=== PATIENT | male | born 1960 | race Caucasian/White ===

== ENCOUNTER → 2019-01-20 | Outpatient (CLI) | payer OTHER ==
[~2019-01-20] MED LIST: ACCUPRIL40 MG PO; ASPIRIN325 PO; ATORVASTATIN CA40 MG PO; COREG25 MG PO; COUMADIN 5 MG TA5 M1 PO; DOXYCYCLINE 10100 MG PO; ENOXAPARIN120 MG/0.1 SUBQ; ENOXAPARIN80 MG/0.1 SUBQ; LISINOPRIL20 MG PO; METOPROLOL TART25 MG PO; NICOTINE TRANSD21 M1 TRANSDERM; SIMVASTATIN40 MG PO; SYNTHROID75 MCG PO
--- NOTE | 2019-01-20 11:12 | 2DMMODE ---
[facility] [address] [place] [address] 2 D/M-MODE ECHOCARDIOGRAM Name: FEDERICAESPERANZA KAUFFMAN Room #: REG [facility]#: [id number] Admission: 01/20/19 Attend Phys: Gee Rebollar MD Discharge: Date of : 56 Date of Service: 01/20/19 1112 Report #: [id number] THIS REPORT FOR: //name// APPROVED REPORT Study performed: 01/20/2019 10:02:16 EXAM: Comprehensive 2D, Doppler, and color-flow Echocardiogram Patient Location: Out-Patient Room #: Echo Lab 1 Status: routine BSA: 2.57 HR: 74 bpm BP: 134/86 mmHg Rhythm: Atrial Fibrillation Other Information Study Quality: Adequate Indications Atrial Fibrillation 2D Dimensions RVDd: 52.30 mm IVSd: 16.71 (7-11mm) LVOT Diam: 20.01 (18-24mm) LVDd: 39.13 mm PWd: 12.65 (7-11mm) Ascending Ao: 47.71 (22-36mm) LVDs: 28.76 (25-40mm) Aortic Root: 43.97 mm Volumes Left Atrial Volume (Systole) Single Plane 4CH: 88.05 mL Single Plane 2CH: 101.46 mL LA ESV Index: 42.00 mL/m2 Aortic Valve AoV Peak Christiano.: 1.28 m/s AO Peak Gr.: 8.57 mmHg LVOT Max P.20 mmHg LVOT Max V: 1.03 m/s RAMBO Vmax: 2.51 cm2 Mitral Valve MV Decel. Time: 154.94 ms MV E Max Christiano.: 1.01 m/s [facility] [address] [place] [address] 2 D/M-MODE ECHOCARDIOGRAM Name: ESPERANZA STALLWORTH Room #: REG [facility]#: [id number] Admission: 01/20/19 Attend Phys: Gee Rebollar MD Discharge: Date of : 56 Date of Service: 01/20/19 1112 Report #: [id number] Pulmonary Valve PV Peak Christiano.: 0.99 m/s PV Peak Gr.: 4.00 mmHg Tricuspid Valve TR Peak Christiano.: 1.91 m/s RAP Estimate: 5.00 mmHg TR Peak Gr.: 14.66 mmHg PA Pressure: 19.00 mmHg Left Ventricle The left ventricle is normal size. There is normal LV segmental wall motion. Mild to moderate concentric left ventricular hypertrophy. The left ventricular systolic function is normal. LVEF is 55-60%. This study is not technically sufficient to allow evaluation of the LV diastolic function due to atrial fibrillation. Right Ventricle Right ventricle is dilated. Atria Left atrium is dilated. Right atrium is dilated. Aortic Valve The aortic valve is normal in structure. Mild aortic regurgitation. There is no aortic valvular stenosis. Mitral Valve The mitral valve is normal in structure. Mild to moderate mitral regurgitation. No evidence of mitral valve stenosis. Tricuspid Valve The tricuspid valve is normal in structure. Mild tricuspid regurgitation. Estimated PAP is 19mmHg. Pulmonic Valve Pulmonic valve is not well visualized. Trace pulmonic regurgitation. Great Vessels Aortic root is dilated at 4.4 cm. The ascending aorta is dilated at 4.8cm. IVC is normal in size and collapses >50% with inspiration. Pericardium There is no pericardial effusion. <Conclusion> [facility] [place] [address] 2 D/M-MODE ECHOCARDIOGRAM Name: FEDERICAESPERANZA Room #: REG CL [facility]#: [id number] Admission: 01/20/19 Attend Phys: Gee Rebollar MD Discharge: Date of : 56 Date of Service: 01/20/191111 Report #: [id number] The left ventricle is normal size. Mild to moderate concentric left ventricular hypertrophy. The left ventricular systolic function is normal. Right ventricle is dilated. Left atrium is dilated. Right atrium is dilated. Mild aortic regurgitation. Mild to moderate mitral regurgitation. Mild tricuspid regurgitation. Estimated PAP is 19mmHg. The ascending aorta is dilated at 4.8cm. <ELECTRONICALLY SIGNED> By: Gee Rebollar MD 01/20/192 11 1112 Gee Rebollar MD /INF
== END ==
LOC: CV 09:46
DX: I08.3 Combined rheumatic disorders of mitral, aortic and tricuspid valves (principal); I48.91 Unspecified atrial fibrillation

== ENCOUNTER → 2019-01-27 | Outpatient (CLI) | payer OTHER ==
[~2019-01-27] VITALS: Ht 193 cm; Wt 129.3 kg
[~2019-01-27] MED LIST changes: +INDAPAMIDE2.5 MG PO; +XARELTO20 MG PO
[2019-01-27 07:02] VITALS: BP 134/90
[2019-01-27 07:14] LABS: HEMATOCRIT 46.3 % (42.0-52.0); HEMOGLOBIN 15.5 gm/dL (14.0-18.0); MCH 31.5 pg (26.0-34.0); MCHC 33.6 g/dL (28.0-37.0); MCV 93.8 fL (80.0-100.0); RBC 4.93 mil/uL (4.50-6.00); RDW 12.7 % (10.5-14.5); WBC 9.4 thou/uL (4.0-11.0)
[2019-01-27 07:23] LABS: POTASSIUM 3.5 mmol/L (3.5-5.1)
[2019-01-27 07:28] LABS: PROTIME 10.7 Seconds (9.3-11.4)
--- NOTE | 2019-01-27 09:03 | EKG ---
[address] [address] ELECTROCARDIOGRAM REPORT Name: ESPERANZA STALLWORTH [id number] ������������������ Admission: 01/27/19 ������������������ Attend Phys: Gee Rebollar MD Discharge: ������������������ Date of : 56 Report #: [id number] ����������������������������������������������������������������� [id number] THIS REPORT FOR: //name// [facility] Test Date: 2019-01-27 Test Time: 07:20:21 Pat Name: ESPERANZA STALLWORTH Department: Room: Gender: Claims Director: Karely ALONSO : 1960 Requested By: Gee Rebollar Order Number: [id number] MD: Francis Schneider Measurements Intervals [place] Rate: 77 P: [place]: QRS: 56 QRSD: 98 T: 40 QT: 409 QTc: 463 Interpretive Statements Atrial fibrillation Otherwise no significant abnormality Compared to ECG 09/07/2017 22:59:34 Sinus rhythm no longer present Electronically Signed On 01-27-2019 9:02:56 CDT by Francis Schneider [email or web address] ��������������������������������������������� <ELECTRONICALLY SIGNED> ���������������������������������������� By: Francis Schneider MD, [facility] ��������������������������������������������� 01/27/19901 9 9 Francis Schneider MD, FACC /EPI
--- NOTE | 2019-01-27 11:10 | CATHLAB ---
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 A PINNACLE 4FR Sheath #[id number] sheath was inserted into the RFA^. Coronary angiography was performed using coronary diagnostic catheters. The right coronary system was accessed and visualized with a JR4 catheter. The left coronary system was accessed and visualized with a JL4 catheter. The left ventricle was accessed and visualized with a pigtail catheter. Hemostasis was obtained with manual pressure following sheath removal without any complications. The patient tolerated the procedure well and there were no complications associated with the procedure. There was no hematoma. Intraoperative Conscious Sedation [facility] [address] [place] [address] INVASIVE PROCEDURE REPORT Name: ESPERANZA STALLWORTH Room #: REG [facility]#: [id number] ������������� Admission: 01/27/19 ������������� Attend Phys: Gee Rebollar MD Discharge: ��� ������������� ��� Date of : 56 Date of Service: 01/27/19 1109 �� Report #: [id number] �������� ��������������������������������������������[id number] Sedation start time: 8:27 Case end Time: 9:04 Fentanyl 75 mcg Versed 1.5 mg .5.5 Fluoro Time: 11.00 minutes Dose: DAP 59306.00 cGycm2 2471 mGy Contrast Type and Amount: Visipaque 65 ml Coronary Angiography The patient's coronary anatomy is right dominant. Diagnostic Cath Left Main This is a patent vessel, with no flow-limiting lesions. LAD There is severe restenosis in the proximal/mid LAD stents. There is a patent POTTER graft with an end to side anastomosis to the mid LAD. After the anastomosis, there is both retrograde and antegrade flow in the [place] LAD. Diagonal 1 This is a small to moderate size caliber vessel, with mild disease at the ostium. Diagonal 2 This is a small to moderate size caliber vessel, with mild disease at the ostium. Circumflex This is a patent vessel, with no flow-limiting lesions. OM1 There is a total occlusion at the ostium. There is a patent SVG with an end to side anastomosis to OM1. OM2 This is a small to moderate size caliber vessel, with mild disease at the ostium. Right Coronary There is a total occlusion in the mid RCA segment. R PDA There is a patent SVG with an end to side anastomosis to the PDA. After the anastomosis, there is also retrograde filling of a RPL branch. Left Ventriculography Left Ventriculography was not performed. The LVEDP was measured and there is no gradient across the outflow tract. Hemodynamics The aortic pressure is 116/84 mmHg with a mean of 98 mmHg. The left ventricular pressure is 108/8 mmHg with a mean of mmHg. The left ventricular end diastolic pressure is 14 mmHg. Conclusion 1. There is a patent POTTER graft to the mid LAD. [facility] [address] [place] [address] INVASIVE PROCEDURE REPORT Name: ESPERANZA STALLWORTH [facility] #: [facility] [id number] ������������� Admission: 01/27/19 ������������� Attend Phys: Gee Rebollar MD Discharge: ��� ������������� ��� Date of : 56 Date of Service: 01/27/19 1109 �� Report #: [id number] �������� ��������������������������������������������[id number] 2. There is a patent SVG to OM1. 3. There is a patent SVG to the PDA. 4. Recommend aggressive risk factor management. ��������������������������������������������� <ELECTRONICALLY SIGNED> ���������������������������������������� By: Gee Rebollar MD ��������������������������������������������� 01/27/191108 08 08 Gee Rebollar MD /INF
== END | disposition home or self-care (01) ==
LOC: CATH 06:32
PROVIDERS: Internal Medicine Cardiovascular Disease
DX: I25.110 Atherosclerotic heart disease of native coronary artery with unstable angina pectoris (principal); T82.855A Stenosis of coronary artery stent, initial encounter; I48.91 Unspecified atrial fibrillation; I10 Essential (primary) hypertension; I25.2 Old myocardial infarction; E78.5 Hyperlipidemia, unspecified; E78.00 Pure hypercholesterolemia, unspecified; Z79.01 Long term (current) use of anticoagulants; Z79.899 Other long term (current) drug therapy; Z95.1 Presence of aortocoronary bypass graft; Z86.711 Personal history of pulmonary embolism; Z87.01 Personal history of pneumonia (recurrent); Z88.0 Allergy status to penicillin; Z88.8 Allergy status to other drugs, medicaments and biological substances; Z79.82 Long term (current) use of aspirin

== ENCOUNTER → 2019-02-02 | Outpatient (CLI) | payer OTHER ==
[~2019-02-02] VITALS: Ht 193 cm; Wt 129.3 kg
[~2019-02-02] MED LIST changes: +MULTAQ400 MG PO; +PACERONE 200 M200 M1 PO
[2019-02-02 07:05] VITALS: BP 110/72
--- NOTE | 2019-02-02 08:55 | TEE ---
[facility] [address] [place] [address] TRANSESOPHAGEAL ECHOCARDIOGRAM Name: ESPERANZA STALLWORTH Room #: REG CL Deonna#: [id number] Admission: 02/02/19 Attend Phys: Francis Schneider, Discharge: Date of : 56 Report #: [id number] THIS REPORT FOR: //name// APPROVED REPORT Study performed: 02/02/2019 08:01:44 EXAM: Transesophageal Echocardiogram with Doppler and cardioversion Patient Location: Out-Patient Room #: 9 Status: routine BSA: 2.58 HR: 61 bpm BP: 114/60 mmHg Rhythm: Atrial Fibrillation Other Information Study Quality: Excellent Indications Atrial Fibrillation Echo Enhancing Agent Indication: Rule out Shunt Agent(s) / Amount(s) Used: Agitated Saline 7 cc Procedure After obtaining informed consent, patient underwent transesophageal echo in the [facility]. Type of Sedation : Conscious Sedation Sedation was achieved intravenously with: Versed (6 mg) Fentanyl (100 mcg) Transesophageal probe was inserted and advanced into esophagus without difficulty by Francis Schneider MD. Echo enhancement indication: R/O Septal defect. Echo enhancement agent administered: Agitated Saline The DANIELITO was performed without complications. Synchronized Cardioversion acheived with 100 Joules after 1 attempt(s). Rhythm following Synchronized Cardioversion: Normal Sinus Rhythm Throughout the procedure, the blood pressure, pulse oximetry, cardiac rhythm, and rate were monitored. The patient tolerated the procedure without adverse effects. Recovery from conscious sedation was uneventful and vital signs were [facility] [address] [place] [address] TRANSESOPHAGEAL ECHOCARDIOGRAM Name: ESPERANZA STALLWORTH Room #: [facility] [id number] Admission: 02/02/19 Attend Phys: Francis Schneider, Discharge: Date of : 56 Report #: [id number] stable. Left Ventricle The left ventricle is normal size. There is normal LV segmental wall motion. Mild to moderate concentric left ventricular hypertrophy. The left ventricular systolic function is normal. The left ventricular ejection fraction is within the normal range. LVEF is 55-60%. Right Ventricle The right ventricle is normal size. The right ventricular systolic function is normal. Atria Left atrium is dilated. No thrombus is visualized in the left atrium or appendage. No shunting by contrast bubble injection Right atrium is dilated. Aortic Valve The aortic valve is trileaflet, minimally sclerotic Mild aortic regurgitation. There is no aortic valvular stenosis. Mitral Valve The mitral valve is normal in structure. Mild mitral regurgitation. No evidence of mitral valve stenosis. Tricuspid Valve The tricuspid valve is normal in structure. Mild tricuspid regurgitation. Pulmonic Valve The pulmonary valve is normal in structure. There is no pulmonic valvular regurgitation. Great Vessels Aortic root is dilated. The ascending aorta is mildly dilated (4.3 cm). IVC is normal in size and collapses >50% with inspiration. Pericardium There is no pericardial effusion. <Conclusion> The left ventricular systolic function is normal. There is normal LV segmental wall motion. LVEF is 55-60%. Both atria are dilated. [facility] [address] [place] [address] TRANSESOPHAGEAL ECHOCARDIOGRAM Name: ESPERANZA STALLWORTH Room #: REG CL Deonan#: [id number] Admission: 02/02/19 Attend Phys: Francis Schneider, Discharge: Date of : 56 Report #: [id number] No thrombus is visualized in the left atrium or appendage. No shunting by contrast bubble injection The aortic valve is trileaflet, minimally sclerotic, no stenosis. Mild aortic regurgitation. The mitral valve is normal in structure. Mild mitral regurgitation. The ascending aorta is mildly dilated (4.3 cm). There is no pericardial effusion. Successful cardioversion of atrial fibrillation to sinus rhythm following the single 100 J biphasic shock <ELECTRONICALLY SIGNED> By: Francis Schneider MD, FACC 02/02/19854 4 4 Francis Schneider MD, FACC /INF
--- NOTE | 2019-02-02 08:57 | EKG ---
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: Karely ALONSO : 1960 Requested By: Francis Schneider Order Number: [id number] MD: Francis Schneider Measurements Intervals [place] Rate: 65 P: [place]: QRS: 48 QRSD: 108 T: 44 QT: 475 QTc: 494 Interpretive Statements Atrial fibrillation Abnormal R-wave progression, early transition Borderline prolonged QT interval Compared to ECG 01/27/2019 07:20:21 No significant changes Electronically Signed On 02-02-2019 8:57:37 CDT by Francis Schneider [email or web address] <ELECTRONICALLY SIGNED> By: Francis Schneider MD, [facility] 02/02/19 0857 Francis Schneider MD, [facility] /EPI
== END | disposition home or self-care (01) ==
LOC: CATH 06:31
DX: I48.91 Unspecified atrial fibrillation (principal); I10 Essential (primary) hypertension; E78.5 Hyperlipidemia, unspecified; I25.2 Old myocardial infarction; Z79.01 Long term (current) use of anticoagulants; Z95.1 Presence of aortocoronary bypass graft; Z98.890 Other specified postprocedural states; Z79.899 Other long term (current) drug therapy; Z87.891 Personal history of nicotine dependence; Z88.0 Allergy status to penicillin; Z88.8 Allergy status to other drugs, medicaments and biological substances; Z79.82 Long term (current) use of aspirin; Z87.01 Personal history of pneumonia (recurrent)

== ENCOUNTER → 2019-02-11 | Outpatient (CLI) | payer OTHER ==
[~2019-02-11] VITALS: Ht 193 cm; Wt 129.3 kg
[2019-02-11 10:39] VITALS: BP 122/91
[2019-02-11 10:46] LABS: ABSOLUTE NEUTROPHILS 4.5 thou/uL (1.4-8.2); BASOPHILS 1.6 % (0.0-2.0); EOSINOPHILS 1.6 % (0.0-3.0); HEMATOCRIT 42.7 % (42.0-52.0); HEMOGLOBIN 14.8 gm/dL (14.0-18.0); LYMPHOCYTES 30.3 % (24.0-44.0); MCH 32.2 pg (26.0-34.0); MCHC 34.6 g/dL (28.0-37.0); MCV 92.9 fL (80.0-100.0); MONOCYTES 8.9 % (1.0-8.0); PLATELET COUNT 203 thou/uL (150-400); POLYS 57.6 % (36.0-66.0); RDW 12.5 % (10.5-14.5); WBC 7.8 thou/uL (4.0-11.0)
[2019-02-11 10:57] LABS: INR 1.2; PROTIME 12.8 Seconds (9.3-11.4)
[2019-02-11 11:01] LABS: CALCIUM 8.9 mg/dL (8.5-10.1); CREATININE 1.1 mg/dL (0.7-1.3); POTASSIUM 4.4 mmol/L (3.5-5.1)
--- NOTE | 2019-02-22 15:57 | P ---
[facility] [place] [address] [place] [address] PROCEDURE REPORT Name: RUBENESPERANZA Room #: REG [facility] MDivya.#: [id number] Admission: 02/11/19 Attend Phys: Scott Desai MD Discharge: Date of : 56 Report #: [id number] THIS REPORT FOR: //name// CC: Scott Young CARDIOVERSION PREOPERATIVE DIAGNOSIS: Atrial fibrillation. POSTOPERATIVE DIAGNOSIS: Atrial fibrillation. DESCRIPTION OF PROCEDURE: The patient underwent informed consent. He was prepped in a sterile standard fashion. He was sedated by the Anesthesiology service. Once sedated, he underwent a 200 joule synchronized cardioversion with yarsani of sinus rhythm. CONCLUSIONS: Successful DC cardioversion with yarsani of sinus rhythm. <ELECTRONICALLY SIGNED> By: Scott Desai MD 02/22/19 1557 1414 2338 Scott Desai MD /nt
== END | disposition home or self-care (01) ==
LOC: CATH 09:59
PROVIDERS: Internal Medicine Cardiovascular Disease
DX: I48.91 Unspecified atrial fibrillation (principal); I10 Essential (primary) hypertension; I25.10 Atherosclerotic heart disease of native coronary artery without angina pectoris; E78.5 Hyperlipidemia, unspecified; I25.2 Old myocardial infarction; E66.09 Other obesity due to excess calories; Z95.1 Presence of aortocoronary bypass graft; Z79.01 Long term (current) use of anticoagulants; N40.0 Benign prostatic hyperplasia without lower urinary tract symptoms; Z86.718 Personal history of other venous thrombosis and embolism; Z98.890 Other specified postprocedural states; Z87.891 Personal history of nicotine dependence; Z88.0 Allergy status to penicillin; Z88.8 Allergy status to other drugs, medicaments and biological substances; Z79.82 Long term (current) use of aspirin; Z79.899 Other long term (current) drug therapy
CPT/HCPCS: 62110; 62900

== ENCOUNTER → 2019-03-24 | Outpatient (CLI) | payer OTHER ==
[2019-03-24 12:18] LABS: HEMATOCRIT 44.3 % (42.0-52.0); HEMOGLOBIN 15.2 gm/dL (14.0-18.0); MCHC 34.3 g/dL (28.0-37.0); MCV 93.4 fL (80.0-100.0); RBC 4.74 mil/uL (4.50-6.00); RDW 12.8 % (10.5-14.5); WBC 7.6 thou/uL (4.0-11.0)
[2019-03-24 12:35] LABS: ALBUMIN 4.2 g/dL (3.4-5.0); CALCIUM 9.7 mg/dL (8.5-10.1); POTASSIUM 3.9 mmol/L (3.5-5.1); TOTAL PROTEIN 7.6 g/dL (6.4-8.2)
== END ==
LOC: CAT 09:49
PROVIDERS: Internal Medicine Cardiovascular Disease
DX: I48.91 Unspecified atrial fibrillation (principal); I25.10 Atherosclerotic heart disease of native coronary artery without angina pectoris; M47.814 Spondylosis without myelopathy or radiculopathy, thoracic region

== ENCOUNTER 2019-03-30 06:53 | Observation (INO) | payer OTHER ==
[2019-03-30] VITALS (10 sets, daily range): BP systolic 123–158; BP diastolic 74–93
[~2019-03-30] VITALS: Ht 193 cm; Wt 128.8 kg
[~2019-03-30 06:53] MED LIST changes: -PACERONE 200 M200 M1 PO
[2019-03-30 07:30] LABS: ABSOLUTE NEUTROPHILS 3.7 thou/uL (1.4-8.2); BASOPHILS 1.1 % (0.0-2.0); EOSINOPHILS 2.8 % (0.0-3.0); HEMATOCRIT 43.3 % (42.0-52.0); HEMOGLOBIN 14.4 gm/dL (14.0-18.0); LYMPHOCYTES 36.7 % (24.0-44.0); MCH 31.7 pg (26.0-34.0); MCHC 33.3 g/dL (28.0-37.0); MCV 95.1 fL (80.0-100.0); MONOCYTES 8.9 % (1.0-8.0); PLATELET COUNT 172 thou/uL (150-400); POLYS 50.5 % (36.0-66.0); RBC 4.55 mil/uL (4.50-6.00); RDW 12.6 % (10.5-14.5); WBC 7.4 thou/uL (4.0-11.0)
[2019-03-30 07:38] LABS: CALCIUM 8.9 mg/dL (8.5-10.1); CREATININE 1.1 mg/dL (0.7-1.3); POTASSIUM 3.6 mmol/L (3.5-5.1)
[2019-03-30 07:40] LABS: APTT 29.3 Seconds (24.5-32.8); PROTIME 10.5 Seconds (9.3-11.4)
[2019-03-30 07:44] LABS: ALBUMIN 3.6 g/dL (3.4-5.0); TOTAL BILIRUBIN 0.6 mg/dL (<0.1-1.0); TOTAL PROTEIN 7.1 g/dL (6.4-8.2)
[2019-03-31] VITALS: BP 113/71
[2019-03-31 04:00] VITALS: BP 130/91
[2019-03-31 08:09] VITALS: BP 143/89
[2019-03-31] MEDS ORDERED: ACCUPRIL40 MG PO (08:58)
[2019-03-31] MEDS ORDERED: PACERONE 200 M200 M1 PO (09:00)
[2019-03-31 10:04] VITALS: BP 143/89
--- NOTE | 2019-04-04 14:02 | P ---
[facility] [address] [place] [address] PROCEDURE REPORT Name: SYDCARLOSESPERANZA YOUNG Room #: 201-P [facility] M.R.#: [id number] Admission: 03/30/19 Attend Phys: Scott Desai MD Discharge: 03/31/19 Date of : 56 Report #: [id number] THIS REPORT FOR: //name// CC: Scott Young DATE OF SERVICE: 03/30/2019 PREOPERATIVE DIAGNOSIS: Atrial fibrillation. POSTOPERATIVE DIAGNOSIS: Atrial fibrillation. HISTORY: The patient is a 58-year-old with history of AFib, here for ablation. PROCEDURES PERFORMED: 1. Atrial fibrillation/ablation, CPT code 21888. 2. 3D mapping, CPT code 72786. 3. Intracardiac echo, CPT code 83056. 4. Focal ablation, CPT code 17491. ANESTHESIA: The patient underwent general anesthesia with no anesthesia related complications. DESCRIPTION OF PROCEDURE: The patient underwent informed consent. We discussed the details of the procedure including the risks, which include but not limited to bleeding, vascular damage, cardiac perforation as well as stroke or RI. He understood these risks and is willing to proceed. The patient was brought to the EP laboratory in a fasting and sedated state and prepped and draped in a sterile fashion. Prior to the ablation, the patient had a CT scan showing two left and two right pulmonary veins. Next, I injected lidocaine at the right groin and obtained access to the right femoral vein x 3, placing an 8, 9 and 7-Welsh short sheath using modified Seldinger technique. Next, under fluoroscopy, I placed a decapolar catheter easily in the coronary sinus and ice catheter in the right atrium and created a detailed 3D geometry of the left atrium using [employer]. This was merged with the cardiac CT scan. Next, the patient was systemically heparinized and a transseptal was performed using an SL1 sheath and a [place] needle, a transseptal was straightforward. I then exchanged SL1 sheath for the cryo sheath and placed this into the left atrium. Next, at baseline, the patient was in atrial fibrillation with a controlled ventricular response. Using a Lasso catheter, I created a detailed 3D voltage map of the left atrium. Then, I exchanged for the cryo sheath and we started by isolating the pulmonary veins. I initially started by isolating the left inferior pulmonary vein. This vein underwent a 4-minute followed by 3-minute freeze. The vein isolated within 70 seconds of the first freeze. I then turned my attention to the left superior pulmonary vein. This vein [address] [address] PROCEDURE REPORT Name: ESPERANZA STALLWORTH Room #: 201-P [facility] M.R.#: [id number] Admission: 03/30/19 Attend Phys: Scott Desai MD Discharge: 03/31/19 Date of : 56 Report #: [id number] underwent a 3-minute followed by 4-minute freeze. The vein isolated during the first freeze within 25 seconds. I then went to the right-sided veins and performed phrenic nerve pacing with the decapolar catheter placed at the subclavian vein. The right superior pulmonary vein underwent two 4-minute freezes. The vein isolated within 25 seconds of the second freeze. The left inferior pulmonary vein underwent two 3-minute freezes. The vein isolated within 30 seconds of the first freeze. I therefore decided to perform a posterior wall ablation and roofline. I performed 3 freezes of the roof anchored from the left superior pulmonary vein and then performed a 3-roof freezes anchored from the right superior pulmonary vein. I then performed 3 freezes of the posterior wall using the cryoballoon anchored from the left inferior pulmonary vein. The patient then underwent a cardioversion with hindu of sinus rhythm. There were some brief little runs of atrial tachycardia that would self-terminate with catheter manipulation. A voltage map was created and this demonstrated that we had created a wide circumferential ablation of the left atrium. Using intracardiac ultrasound, I verified there was no pericardial effusion. As such, the patient received systemic protamine and once ACT was within acceptable range, all catheters and sheaths were pulled and hemostasis was obtained. The patient awoke neurologically and hemodynamically intact. No complications and no significant bleeding. CONCLUSIONS: Successful AFib ablation with wide circumferential ablation of the pulmonary veins. <ELECTRONICALLY SIGNED> By: Scott Desai MD 04/04/19 1402 1115 1145 Scott Desai MD /nt
== END 2019-03-31 11:24 | disposition home or self-care (01) ==
LOC: CATH 06:53 → 2N 12:27 → ENTRNSPT 03-31 11:11 → EDTRNSPTSTS 03-31 11:13 → 2N 03-31 11:24
PROVIDERS: ADMIT Internal Medicine Cardiovascular Disease
DX: I48.0 Paroxysmal atrial fibrillation (principal); I25.10 Atherosclerotic heart disease of native coronary artery without angina pectoris; I11.9 Hypertensive heart disease without heart failure; E66.01 Morbid (severe) obesity due to excess calories; E78.5 Hyperlipidemia, unspecified; I25.2 Old myocardial infarction; Z87.891 Personal history of nicotine dependence; Z68.35 Body mass index [BMI] 35.0-35.9, adult; Z79.82 Long term (current) use of aspirin; Z79.899 Other long term (current) drug therapy; Z86.718 Personal history of other venous thrombosis and embolism; Z86.711 Personal history of pulmonary embolism
CPT/HCPCS: 62110; 62900; 65020; 65040; 70005

== ENCOUNTER → 2020-12-18 | Outpatient (CLI) | payer OTHER ==
[~2020-12-18] MED LIST changes: +PACERONE 200 M200 M1 PO
== END ==
LOC: SJCVCIMAG 07:51
PROVIDERS: ATTEND Internal Medicine Cardiovascular Disease
DX: I49.1 Atrial premature depolarization (principal); I44.0 Atrioventricular block, first degree; R00.1 Bradycardia, unspecified; I48.91 Unspecified atrial fibrillation; R07.89 Other chest pain; R06.00 Dyspnea, unspecified; I10 Essential (primary) hypertension; E66.9 Obesity, unspecified; F17.200 Nicotine dependence, unspecified, uncomplicated; Z79.82 Long term (current) use of aspirin; Z79.899 Other long term (current) drug therapy; Z88.5 Allergy status to narcotic agent; Z88.0 Allergy status to penicillin; Z95.1 Presence of aortocoronary bypass graft; Z98.61 Coronary angioplasty status

== ENCOUNTER 2021-06-10 13:56 | Emergency (ER) | payer OTHER ==
[~2021-06-10] VITALS: Ht 193 cm; Wt 127.0 kg
[2021-06-10] MEDS ORDERED: LORAZEPAM 0.50.5 MG PO (14:27)
[2021-06-10] MEDS ORDERED: NORVASC10 MG PO (14:27)
[2021-06-10] MEDS ORDERED: SILDENAFIL20 MG PO (14:28)
[2021-06-10] MEDS ORDERED: TRAZODONE HCL50 MG PO (14:28)
[2021-06-10 15:38] LABS: ABSOLUTE NEUTROPHILS 4.7 thou/uL (1.4-8.2); BASOPHILS 1.1 % (0.0-2.0); EOSINOPHILS 2.2 % (0.0-3.0); HEMOGLOBIN 14.7 gm/dL (14.0-18.0); LYMPHOCYTES 29.1 % (24.0-44.0); MCH 31.2 pg (26.0-34.0); MCHC 34.2 g/dL (28.0-37.0); MCV 91.3 fL (80.0-100.0); MONOCYTES 8.2 % (1.0-8.0); PLATELET COUNT 235 thou/uL (150-400); POLYS 59.4 % (36.0-66.0); RBC 4.71 mil/uL (4.50-6.00); RDW 12.3 % (10.5-14.5)
[2021-06-10 16:21] LABS: CALCIUM 8.7 mg/dL (8.5-10.1); CREATININE 0.9 mg/dL (0.7-1.3); POTASSIUM 3.5 mmol/L (3.5-5.1)
[2021-06-10 16:27] LABS: ALBUMIN 3.9 g/dL (3.4-5.0); TOTAL BILIRUBIN 0.7 mg/dL (0.2-1.0); TOTAL PROTEIN 7.1 g/dL (6.4-8.2)
[2021-06-10 17:09] LABS: URINE BILIRUBIN NEGATIVE (Negative); URINE BLOOD NEGATIVE (Negative); URINE CLARITY CLEAR; URINE COLOR YELLOW; URINE GLUCOSE-RANDOM* NEGATIVE (Negative); URINE KETONES NEGATIVE (Negative); URINE LEUKOCYTES-REFLEX NEGATIVE (Negative); URINE NITRITE-REFLEX NEGATIVE (Negative); URINE PROTEIN (DIPSTICK) NEGATIVE (Negative); URINE UROBILINOGEN 0.2 E.U./dl (0.2-1.0)
[2021-06-10] MEDS ORDERED: ZOFRAN ODT4 MG PO (17:57)
[2021-06-10] MEDS ORDERED: NORCO7.5 PO (17:57)
[2021-06-10] MEDS ORDERED: CIPROFLOXACIN500 M1 PO (17:58)
[2021-06-10 18:12] VITALS: BP 156/102
== END 2021-06-10 18:13 | disposition home or self-care (01) ==
LOC: ER 13:56
PROVIDERS: Emergency Medicine
DX: K40.90 Unilateral inguinal hernia, without obstruction or gangrene, not specified as recurrent (principal); N50.811 Right testicular pain; N43.3 Hydrocele, unspecified; I48.91 Unspecified atrial fibrillation; I25.10 Atherosclerotic heart disease of native coronary artery without angina pectoris; I25.2 Old myocardial infarction; E66.01 Morbid (severe) obesity due to excess calories; I10 Essential (primary) hypertension; F17.210 Nicotine dependence, cigarettes, uncomplicated; F12.90 Cannabis use, unspecified, uncomplicated; Z95.1 Presence of aortocoronary bypass graft; Z79.82 Long term (current) use of aspirin; Z79.899 Other long term (current) drug therapy; Z88.0 Allergy status to penicillin; Z88.5 Allergy status to narcotic agent; Z68.34 Body mass index [BMI] 34.0-34.9, adult

== ENCOUNTER → 2021-06-20 | Outpatient (CLI) | payer OTHER ==
[~2021-06-20] MED LIST changes: +CIPROFLOXACIN500 M1 PO; +LORAZEPAM 0.50.5 MG PO; +NORCO7.5 PO; +NORVASC10 MG PO; +SILDENAFIL20 MG PO; +TRAZODONE HCL50 MG PO; +ZOFRAN ODT4 MG PO
== END ==
LOC: SJCVCIMAG 08:27
PROVIDERS: ATTEND Internal Medicine Cardiovascular Disease
DX: I11.9 Hypertensive heart disease without heart failure (principal); I35.1 Nonrheumatic aortic (valve) insufficiency; I48.91 Unspecified atrial fibrillation; I25.10 Atherosclerotic heart disease of native coronary artery without angina pectoris; E78.5 Hyperlipidemia, unspecified